=== PATIENT | female | born 1985 | race Caucasian/White ===

== ENCOUNTER 2017-02-13 19:45 | Emergency (ER) | payer MEDICAID ==
[~2017-02-13] VITALS: Ht 167.6 cm; Wt 69.6 kg
[2017-02-13 19:49] VITALS: BP 125/82
== END 2017-02-13 20:16 | disposition home or self-care (01) ==
LOC: ED 20:10
DX: K02.9 Dental caries, unspecified (principal); Z88.0 Allergy status to penicillin
CPT/HCPCS: 99283

== ENCOUNTER 2018-04-15 14:04 | Emergency (ER) | payer MEDICAID ==
[~2018-04-15] VITALS: Ht 167.6 cm; Wt 76.9 kg
[2018-04-15 14:22] VITALS: BP 114/75
[2018-04-15] MEDS ORDERED: LIDOCAINE-MPF 2% ,5ML ONE (14:47)
[2018-04-15] MEDS ORDERED: LIDOCAINE-MPF 1%, 5ML INFIL ONE (15:00)
== END 2018-04-15 16:42 | disposition home or self-care (01) ==
LOC: ED 15:00
DX: K02.9 Dental caries, unspecified (principal); K01.1 Impacted teeth
CPT/HCPCS: 64402; 99284